=== PATIENT | female | born 1945 | race Caucasian/White ===

== ENCOUNTER 2016-08-18 09:08 | Outpatient (CLI) | payer MEDICARE | END 2016-08-18 09:09 | disposition home or self-care (01) | DX: S83.241A Other tear of medial meniscus, current injury, right knee, initial encounter (principal); S83.281A Other tear of lateral meniscus, current injury, right knee, initial encounter; M17.11 Unilateral primary osteoarthritis, right knee; M25.461 Effusion, right knee; M67.461 Ganglion, right knee; I86.8 Varicose veins of other specified sites ==

== ENCOUNTER 2016-12-24 13:30 | Outpatient (CLI) | payer MEDICARE | END 2016-12-24 13:45 | disposition home or self-care (01) | LOC: RT.N 13:30 | PROVIDERS: ATTEND Nurse Practitioner Gerontology | DX: Z01.810 Encounter for preprocedural cardiovascular examination (principal) | CPT/HCPCS: 93005 ==

== ENCOUNTER 2016-12-24 21:53 | Outpatient (CLI) | payer MEDICARE ==
[2016-12-24 19:12] LABS: BASOPHILS % (AUTO) 0.5 %; EOSINOPHILS # (AUTO) 0.2 10^3/uL (0.0-0.7); EOSINOPHILS % (AUTO) 2.4 %; HCT - HEMATOCRIT 42.3 % (37.0-47.0); LYMPHOCYTES # (AUTO) 1.9 10^3/uL (1.5-3.5); LYMPHOCYTES % (AUTO) 21.7 %; MEAN CORPUSCULAR HEMOGLOBIN 28.6 pg (27.0-31.0); MEAN CORPUSCULAR VOLUME 86.6 fL (81.0-99.0); MEAN PLATELET VOLUME 9.4 fL (7.9-10.8); MONOCYTES # (AUTO) 0.5 10^3/uL (0.0-1.0); MONOCYTES % (AUTO) 6.3 %; NEUTROPHILS % (AUTO) 69.1 %; RED BLOOD COUNT 4.88 10^6/uL (4.20-5.40); RED CELL DISTRIBUTION WIDTH 14.6 % (12.0-15.0); UNCORRECTED WHITE BLOOD COUNT 8.6 x10^3/uL; WHITE BLOOD COUNT 8.6 x10^3/uL (4.8-10.8)
[2016-12-24 19:33] LABS: ALBUMIN/GLOBULIN RATIO 1.1 (1.0-2.2); BILIRUBIN,TOTAL 0.5 mg/dL (0.2-1.0); BUN - BLOOD UREA NITROGEN 20 mg/dL (6-20); CARBON DIOXIDE - CO2 28 mmol/L (21-32); CHLORIDE 100 mmol/L (101-111); CHOL/HDL RATIO 2.8 (<4.4); CHOLESTEROL 190 mg/dL; CREATININE 0.8 mg/dL (0.4-1.0); GFR - MDRD 71 (>89); GLUCOSE 103 mg/dL (70-100); HDL CHOLESTEROL 69 mg/dL; LDL/HDL RATIO 1.4 (<4.4); POTASSIUM 3.1 mmol/L (3.5-5.0); SODIUM 137 mmol/L (135-145); TOTAL PROTEIN 7.3 g/dL (6.7-8.2); TRIGLYCERIDES 104 mg/dL; VLDL CHOLESTEROL 21 mg/dL
== END 2016-12-24 21:54 | disposition home or self-care (01) ==
LOC: LAB.N 21:53
PROVIDERS: ATTEND Nurse Practitioner Gerontology
DX: Z01.810 Encounter for preprocedural cardiovascular examination (principal); R73.03 Prediabetes; I63.9 Cerebral infarction, unspecified; E78.5 Hyperlipidemia, unspecified; E66.9 Obesity, unspecified; I67.89 Other cerebrovascular disease
CPT/HCPCS: 36415; 80053; 80061; 84443; 85025; 87640; 93005

== ENCOUNTER 2016-12-24 22:06 | Outpatient (CLI) | payer MEDICARE | END 2016-12-24 22:07 | disposition home or self-care (01) | LOC: LAB.R 22:06 | PROVIDERS: ATTEND Nurse Practitioner Gerontology | DX: Z01.818 Encounter for other preprocedural examination (principal); M67.461 Ganglion, right knee; M25.561 Pain in right knee | CPT/HCPCS: 87640 ==

== ENCOUNTER 2017-01-09 08:39 | Outpatient (CLI) | payer MEDICARE | END 2017-01-09 08:40 | disposition home or self-care (01) | LOC: LAB.N 08:39 | PROVIDERS: ATTEND Nurse Practitioner Gerontology | DX: E87.6 Hypokalemia (principal) | CPT/HCPCS: 36415; 84132 ==

== ENCOUNTER 2017-02-20 12:06 | Outpatient (CLI) | payer MEDICARE ==
--- NOTE | 2017-02-20 16:29 | CT Report ---
CT LUNG CANCER SCREENING WITHOUT CONTRAST: 02/20/2017 CLINICAL INDICATION: A 71-year-old with [id number] history of smoking, quit within the last 15 year s, for screening. COMPARISON: 01/31/2016. TECHNIQUE: Axial CT images of the chest were obtained without intravenous contrast, using low dose sc reening technique. FINDINGS: The heart and great vessels are unremarkable. No hilar or mediastinal lymphadenopathy is p resent. The previously noted subpleural nodules are stable, with the more superior nodule in the left lower lobe measuring 4 mm (axial image 70), and the more inferior left lower lobe nodule measuring 6 mm (axial image 79), and the right lower lobe nodule measuring 5 mm (axial image 98). No new or enla rging pulmonary nodule is identified. No effusion or pneumothorax is present. Limited evaluation of upper abdominal structures demonstrates normal adrenal glands. The osseous stru ctures demonstrate degenerative changes. IMPRESSION: STABLE SMALL SUBPLEURAL PULMONARY NODULES. NO SIGNIFICANT INTERVAL CHANGE. RECOMMENDATION: CONTINUE ANNUAL SCREENING WITH LOW DOSE CT IN TWELVE MONTHS. LUNG RADS CATEGORY 2-BENIGN FINDINGS. In accordance with CT protocol optimization, one or more of the following dose reduction techniques w ere utilized for this exam: automated exposure control, adjustment of mA and/or KV based on patient size, or use of iterative reconstructive technique. JOB #: [id number] EXT JOB #:[id number]
== END 2017-02-20 12:07 | disposition home or self-care (01) ==
LOC: DI 12:06
PROVIDERS: ATTEND Nurse Practitioner Gerontology
DX: Z12.2 Encounter for screening for malignant neoplasm of respiratory organs (principal); Z87.891 Personal history of nicotine dependence; R91.8 Other nonspecific abnormal finding of lung field

== ENCOUNTER 2017-03-06 08:00 | Outpatient (CLI) | payer MEDICARE | END 2017-03-06 08:01 | disposition home or self-care (01) | LOC: LAB.N 08:00 | PROVIDERS: ATTEND Nurse Practitioner Gerontology | DX: E87.6 Hypokalemia (principal) | CPT/HCPCS: 36415; 84132 ==

== ENCOUNTER 2017-03-25 06:05 | Inpatient (IN) | payer MEDICARE ==
[2017-03-25] MEDS ORDERED: ceFAZolin 2 GM/50 ML 2 GM/50 ML BAG IV ONE (06:36)
[2017-03-25] MEDS ORDERED: LACTATED RINGERS 1,000 ML IV ONE (07:20)
[2017-03-25] MEDS ORDERED: MORPHINE PF 10 MG/10 ML AMP SUBQ ONE ×2 (10:14→10:32)
[2017-03-25] MEDS ORDERED: EPINEPHrine 1 MG/ML AMP SUBQ ONE ×2 (10:15→10:32)
[2017-03-25] MEDS ORDERED: ROPIVACAINE 0.2% PF 20 ML AMPULE SUBQ ONE ×2 (10:16→10:32)
[2017-03-25] MEDS ORDERED: KETOROLAC 30 MG/ML VIAL IM ONE ×2 (10:18→10:32)
[2017-03-25] MEDS ORDERED: BUPIVACAINE 0.5%-EPI 1:200000 PF 30 ML VIAL SUBQ ONE ×2 (10:22→11:24)
[2017-03-25] MEDS ORDERED: TRANEXAMIC ACID 1,000 MG/10 ML VIAL IV ONE (10:30)
[2017-03-25] MEDS ORDERED: ceFAZolin 1 GM VIAL IV ONE (10:30)
[2017-03-25] MEDS ORDERED: ACETAMINOPHEN 1,000 MG/100 ML 100 ML IV ONE (10:30)
[2017-03-25] MEDS ORDERED: MIDAZOLAM 2 MG/2 ML VIAL IVP ONE (10:30)
[2017-03-25] MEDS ORDERED: fentaNYL 100 MCG/2 ML VIAL IVP ONE (10:30)
[2017-03-25] MEDS ORDERED: PHENYLEPHRINE 50 MG/5 ML VIAL IV ONE (10:30)
[2017-03-25] MEDS ORDERED: KETOROLAC 30 MG/ML VIAL IVP ONE (10:30)
[2017-03-25] MEDS ORDERED: METOCLOPRAMIDE 10 MG/2 ML VIAL IVP ONE (10:30)
[2017-03-25] MEDS ORDERED: ePHEDrine 50 MG/ML VIAL IVP ONE (10:30)
[2017-03-25] MEDS ORDERED: LIDOCAINE-MPF 2% 5 ML VIAL IM ONE (10:30)
[2017-03-25] MEDS ORDERED: DEXAMETHASONE 4 MG/ML VIAL IVP ONE (10:30)
[2017-03-25] MEDS ORDERED: PROPOFOL 200 MG/20 ML VIAL IVP ONE (10:30)
--- NOTE | 2017-03-25 11:44 | OPERATIVE REPORT ---
Operative Report - General Admit Date: 03/25/17 Procedure Date: 03/25/17 Pre-Op Diagnosis: Right Knee Osteoarthritis Procedure Performed: Right Total Knee Arthroplasty Post Op Diagnosis: Same - Procedure Note Primary Surgeon: Russell Gale MD Anesthesia Provider: Jenna Arnold CRNA Anesthesia Technique: General ET tube, Local, Regional block Pathology: Same IV Fluids (mL): 1,500 (LR) Estimated Blood Loss (mL): 300 Complications: None. - Other Other Information/Narrative: Implants: Perlita Persona Knee: Size 7 Standard Femoral Com[onent, PS Size E Tibial Tray Size E x 10 mm PS Polyethylene Tibial Insert Size 32 x 8 mm Polyethylene Patella Button Palacos Cement Condition: Stable. Disposition: PACU >> Med Surg
[2017-03-25] MEDS ORDERED: PROCHLORPERAZINE 10 MG/2 ML VIAL IVP PRN (11:47)
[2017-03-25] MEDS ORDERED: BISACODYL 5 MG TABLET PO PRN (11:47)
[2017-03-25] MEDS ORDERED: BISACODYL 10 MG SUPP PR PRN (11:47)
[2017-03-25] MEDS ORDERED: ACETAMINOPHEN 325 MG TABLET PO PRN (11:47)
[2017-03-25] MEDS ORDERED: DOCUSATE SODIUM 100 MG CAPSULE PO PRN (11:47)
[2017-03-25] MEDS ORDERED: ACETAMINOPHEN 1,000 MG/100 ML 100 ML IV PRN (11:47)
[2017-03-25] MEDS ORDERED: ONDANSETRON 4 MG/2 ML VIAL IVP PRN (11:47)
[2017-03-25] MEDS ORDERED: SODIUM CHLORIDE FLUSH 0.9% 10 ML SYRINGE IVP PRN (11:47)
[2017-03-25] MEDS ORDERED: HYDROmorphone 1 MG/ML CARPUJECT IVP PRN (11:47)
[2017-03-25] MEDS ORDERED: SENNA 8.6 MG TABLET PO PRN (11:47)
[2017-03-25] MEDS ORDERED: ALBUTEROL NEB 2.5 MG/3 ML INH PRN (11:54)
[2017-03-25] MEDS: SODIUM CHLORIDE FLUSH 0.9% 10 ML SYRINGE IVP SCH ×2 (13:46→22:28)
[2017-03-25] MEDS: ceFAZolin 2 GM/50 ML 2 GM/50 ML BAG IV SCH ×2 (13:46→21:05)
[2017-03-25] MEDS: SODIUM CHLORIDE 0.45% 1,000 ML IV SCH (13:46)
--- NOTE | 2017-03-25 20:14 | XRAY Preliminary Report ---
Exam: XR Knee 2 View RT IMPRESSION: Unremarkable postoperative exam. [facility] SITE ID: [id number]
--- NOTE | 2017-03-25 20:34 | XRAY Report ---
EXAM: RIGHT KNEE RADIOGRAPHY EXAM DATE: 03/25/2017 05:37 PM. CLINICAL HISTORY: Right total knee arthroplasty. COMPARISON: 08/28/2016. TECHNIQUE: 2 views. FINDINGS: Bones: No unexpected bony abnormality. Joints: Immediately status post right total knee replacement. Bones in anatomic alignment. Soft Tissues: Air and edema at the operative site. IMPRESSION: Unremarkable postoperative exam. [facility] Referring Provider Line: [phone] SITE ID: [id number]
[2017-03-25] MEDS: OMEGA-3 ACID ETHYL ESTERS 1 GM CAPSULE PO SCH (21:04)
[2017-03-25] MEDS: POTASSIUM CHLORIDE 20 MEQ TABLET PO SCH (21:04)
[2017-03-25] MEDS: TOCOPHERYL 400 UNIT CAPSULE PO SCH (21:04)
[2017-03-25] MEDS: traZODone 50 MG TABLET PO SCH (21:04)
[2017-03-25] MEDS: CALCIUM CARBONATE CHEW 500 MG TABLET PO SCH (21:04)
[2017-03-25] MEDS: MONTELUKAST 10 MG TABLET PO SCH (21:15)
[2017-03-25] MEDS: oxyCOD/ACETAMIN 5 MG/325 MG TABLET PO PRN (21:15)
[2017-03-26] MEDS: SODIUM CHLORIDE 0.45% 1,000 ML IV SCH ×2 (00:43→10:52)
[2017-03-26] MEDS: PANTOPRAZOLE 40 MG TABLET PO SCH (06:30)
[2017-03-26] MEDS: oxyCOD/ACETAMIN 5 MG/325 MG TABLET PO PRN ×3 (06:30→20:41)
[2017-03-26] MEDS: SODIUM CHLORIDE FLUSH 0.9% 10 ML SYRINGE IVP SCH ×3 (06:31→19:03)
[2017-03-26 06:44] LABS: BASOPHILS % (AUTO) 0.2 %; EOSINOPHILS % (AUTO) 0.1 %; HCT - HEMATOCRIT 34.5 % (37.0-47.0); HGB - HEMOGLOBIN 11.4 g/dL (12.0-16.0); LYMPHOCYTES # (AUTO) 1.3 10^3/uL (1.5-3.5); MEAN CORPUSCULAR HEMOGLOBIN 29.3 pg (27.0-31.0); MEAN CORPUSCULAR HGB CONC 33.2 g/dL (32.0-36.0); MEAN CORPUSCULAR VOLUME 88.5 fL (81.0-99.0); MONOCYTES # (AUTO) 0.8 10^3/uL (0.0-1.0); MONOCYTES % (AUTO) 5.7 %; NEUTROPHILS # (AUTO) 12.2 10^3/uL (1.5-6.6); RED CELL DISTRIBUTION WIDTH 14.5 % (12.0-15.0); UNCORRECTED WHITE BLOOD COUNT 14.3 x10^3/uL; WHITE BLOOD COUNT 14.3 x10^3/uL (4.8-10.8)
[2017-03-26 06:47] LABS: CALCIUM 7.6 mg/dL (8.5-10.3); CREATININE 1.1 mg/dL (0.4-1.0); POTASSIUM 3.2 mmol/L (3.5-5.0)
[2017-03-26] MEDS: VITAMIN B COMPLEX PO SCH (08:35)
[2017-03-26] MEDS: CHOLECALCIFEROL 1,000 UNIT TABLET PO SCH (08:36)
[2017-03-26] MEDS: OMEGA-3 ACID ETHYL ESTERS 1 GM CAPSULE PO SCH ×2 (08:36→20:41)
[2017-03-26] MEDS: POTASSIUM CHLORIDE 20 MEQ TABLET PO SCH ×2 (08:36→20:41)
[2017-03-26] MEDS: TOCOPHERYL 400 UNIT CAPSULE PO SCH ×2 (08:36→20:41)
[2017-03-26] MEDS: CALCIUM CARBONATE CHEW 500 MG TABLET PO SCH ×2 (08:37→20:40)
[2017-03-26] MEDS: CHLORTHALIDONE 25 MG TABLET PO SCH (08:37)
[2017-03-26] MEDS: ENOXAPARIN 40 MG/0.4 ML SYRINGE SUBQ SCH (08:38)
[2017-03-26] MEDS ORDERED: ATORVASTATIN 10 MG TABLET PO SCH (09:00)
--- NOTE | 2017-03-26 11:45 | OPERATIVE REPORT ---
DATE OF SURGERY: 03/25/2017 00:00:00 PREOPERATIVE DIAGNOSIS: Right knee osteoarthritis. POSTOPERATIVE DIAGNOSIS: Right knee osteoarthritis. PROCEDURE PERFORMED: Right total knee arthroplasty. SURGEON: Russell Gale MD. ANESTHESIA: Raheem Johnson MD. ANESTHESIA TECHNIQUE: General endotracheal tube, local, and regional block. PATHOLOGY: Same. INTRAVENOUS FLUIDS: 1500 mL of lactated Ringer's. BLOOD LOSS: 300 mL. URINE OUTPUT: Adequate. COMPLICATIONS: None. IMPLANTS 1. Perlita Persona knee, size 7 standard femoral component, posterior stabilized. 2. A size E tibial tray. 3. A size E x 10 mm PS polyethylene tibial insert. 4. A size 32 x 8 mm polyethylene patellar button. 5. Palacos cement. CONDITION AT END OF PROCEDURE: Stable. DISPOSITION: PACU, then Med/Surg. TOURNIQUET: Right thigh at 275 mmHg x120 minutes. INDICATIONS: This is a 71-year-old female with multiple medical problems who has undergone extensive preoperative workup for her COPD and cardiac issues and deemed stable for surgery. She has had a long standing history of progressive right knee pain refractory to nonoperative measures such as activity modification, physical therapy and exercise, injection, a cane to the left hand, and oral analgesics. Despite these measures, she has continued to have significant pain with activity and pain that keeps her awake at night. She has opted for right total knee arthroplasty. PROCEDURE IN DETAIL: After consent and identification, the patient was brought to the operating room and placed in the supine position on the operating table. After induction of a general endotracheal a nesthesia and appropriate monitoring, the right lower extremity was prepped and draped free with a to urniquet to the proximal thigh. After prepping and draping, the right lower extremity was placed in t Olivares leg sanon. The Esmarch bandage was used to exsanguinate the extremity and the tourniquet was inflated to 275 mmHg. After an appropriate timeout had been conducted, we extended the right knee and made a standard media n parapatellar approach to the right knee everting the patella. Extensive osteophyte resection was ca rried out with a rongeur. A drill was used to make a police pilot hole in the distal femur at the junction b etween Blumensaat line and the trochlear groove. The intramedullary distal femoral cutting guide was introduced and pinned and a distal femoral cut at 10 mm was performed. We then positioned and secured the distal femoral cutting block and performed anterior, posterior and chamfer cuts on the distal fe mur. The distal femur was sized to a size 7 femoral component. We then placed the tuning fork retract or in place after resecting the anterior and posterior cruciate ligaments with electrocautery. This d elivered the tibia anteriorly. The extramedullary tibial cutting guide was then positioned and secure d with pins. We used the stylus to detect the low point, which was posterolaterally. We then performe d our proximal tibial cut at the 0 level with reference to the low point on the lateral posterior cor ner. Cut was deemed to be adequate. We resected the menisci both medially and laterally with the elec trocautery. We then performed our tibial preparation with our punch and drill and placed a tibial tra y, which was pinned in position. The femoral trial was positioned and we placed a 10 mm posterior sta bilized insert. Range of motion verified good flexion, extension gaps. We then used the clamp and the calipers to make a 9 mm cut on the patella. We prepared the patellar surface with 3 drill holes and sized to a 32 mm polyethylene component. The patellar trial was placed and we again ranged the knee a nd noted good patellar tracking. We then removed all of our trial components and prepared the bony zavala rfaces with thorough irrigation with 3 liters of sterile saline. We placed dry lap sponges in the kne e while we mixed 2 batches of Palacos cement on the back table. We used the anterior chamfer cut to m tomás a bone plug, which was tamped into position in the hole made for the intramedullary guide and the distal femur to decrease blood loss. When the cement was in good consistency and the components had been opened, we applied cement to the back of the tibial tray and inserted the tibial tray, impacting it into position and aggressively debriding cement. Cement was placed on the back of the femoral com ponent. The femoral component was impacted into position. We placed our tibial trial and extended the knee. We then clamped and placed the polyethylene component on the patella with cement on the back a nd aggressively debrided this excess cement. With the components in a reduced position, we allowed th e cement to cure. We inspected the knee for any residual cement and debrided this carefully. We then irrigated the knee thoroughly. We removed the trial tibial component from the tray and inserted the p olyethylene component, snapping it into position with the inserting device. With all components in pl ronal, we again irrigated the knee. We then sequentially closed the knee after injecting the posterior capsule with our 60 mL solution of Naropin, Duramorph, Toradol and epinephrine. A running #5 Ethibond suture was used to close the medial capsule. Interrupted 2-0 Vicryl sutures were used in the subcuti cular layer. A running 3-0 Monocryl suture was used in the subdermal layer. We then injected the knee incision with an additional 30 mL of 0.5% Marcaine with epinephrine. A sterile Mepilex AG dressing w as then placed over the knee. The tourniquet was deflated and the leg was wrapped in a 6-inch and 4-i nmh Ronal bandage from the toes to the proximal thigh. On completion of the procedure, the patient was extubated and transferred to the recovery room in goo d condition having tolerated the procedure well. JOB #: [id number] EXT JOB #:[id number]
[2017-03-26] MEDS: HYDROmorphone 1 MG/ML SYRINGE IVP PRN ×2 (12:41→16:38)
[2017-03-26] MEDS: CITALOPRAM 10 MG TABLET PO SCH (13:41)
[2017-03-26] MEDS: ATORVASTATIN 10 MG TABLET PO SCH (20:40)
[2017-03-26] MEDS: MONTELUKAST 10 MG TABLET PO SCH (20:48)
[2017-03-27] MEDS: traZODone 50 MG TABLET PO SCH ×2 (00:02→20:38)
[2017-03-27] MEDS: oxyCOD/ACETAMIN 5 MG/325 MG TABLET PO PRN ×4 (05:07→20:38)
[2017-03-27] MEDS: SODIUM CHLORIDE FLUSH 0.9% 10 ML SYRINGE IVP SCH ×3 (06:22→20:40)
[2017-03-27] MEDS: PANTOPRAZOLE 40 MG TABLET PO SCH (06:22)
[2017-03-27] MEDS: CLOPIDOGREL 75 MG TABLET PO SCH (09:39)
[2017-03-27] MEDS: CHLORTHALIDONE 25 MG TABLET PO SCH (09:39)
[2017-03-27] MEDS: CALCIUM CARBONATE CHEW 500 MG TABLET PO SCH ×2 (09:39→20:37)
[2017-03-27] MEDS: CITALOPRAM 10 MG TABLET PO SCH (09:40)
[2017-03-27] MEDS: CHOLECALCIFEROL 1,000 UNIT TABLET PO SCH (09:40)
[2017-03-27] MEDS: VITAMIN B COMPLEX PO SCH (09:40)
[2017-03-27] MEDS: TOCOPHERYL 400 UNIT CAPSULE PO SCH ×2 (09:40→20:37)
[2017-03-27] MEDS: OMEGA-3 ACID ETHYL ESTERS 1 GM CAPSULE PO SCH ×2 (09:40→20:37)
[2017-03-27] MEDS: ENOXAPARIN 40 MG/0.4 ML SYRINGE SUBQ SCH (09:40)
[2017-03-27] MEDS: POTASSIUM CHLORIDE 20 MEQ TABLET PO SCH ×2 (09:40→20:37)
[2017-03-27] MEDS: ATORVASTATIN 10 MG TABLET PO SCH (20:37)
[2017-03-27] MEDS: MONTELUKAST 10 MG TABLET PO SCH (20:37)
[2017-03-28] MEDS: oxyCOD/ACETAMIN 5 MG/325 MG TABLET PO PRN ×3 (01:09→15:53)
[2017-03-28] MEDS: SODIUM CHLORIDE FLUSH 0.9% 10 ML SYRINGE IVP SCH ×3 (06:28→21:19)
[2017-03-28] MEDS: PANTOPRAZOLE 40 MG TABLET PO SCH (06:28)
[2017-03-28] MEDS: VITAMIN B COMPLEX PO SCH (07:39)
[2017-03-28] MEDS: CITALOPRAM 10 MG TABLET PO SCH (09:01)
[2017-03-28] MEDS: ENOXAPARIN 40 MG/0.4 ML SYRINGE SUBQ SCH (09:02)
[2017-03-28] MEDS: POTASSIUM CHLORIDE 20 MEQ TABLET PO SCH ×2 (09:02→20:57)
[2017-03-28] MEDS: TOCOPHERYL 400 UNIT CAPSULE PO SCH ×2 (09:02→20:57)
[2017-03-28] MEDS: CHLORTHALIDONE 25 MG TABLET PO SCH (09:02)
[2017-03-28] MEDS: CLOPIDOGREL 75 MG TABLET PO SCH (09:02)
[2017-03-28] MEDS: OMEGA-3 ACID ETHYL ESTERS 1 GM CAPSULE PO SCH ×2 (09:02→20:57)
[2017-03-28] MEDS: CALCIUM CARBONATE CHEW 500 MG TABLET PO SCH ×2 (09:02→20:57)
[2017-03-28] MEDS: CHOLECALCIFEROL 1,000 UNIT TABLET PO SCH (09:02)
[2017-03-28] MEDS: ATORVASTATIN 10 MG TABLET PO SCH (20:57)
[2017-03-28] MEDS: MONTELUKAST 10 MG TABLET PO SCH (20:57)
[2017-03-28] MEDS: traZODone 50 MG TABLET PO SCH (20:57)
[2017-03-29] MEDS: oxyCOD/ACETAMIN 5 MG/325 MG TABLET PO PRN ×3 (00:32→12:41)
[2017-03-29] MEDS: PANTOPRAZOLE 40 MG TABLET PO SCH (06:50)
[2017-03-29] MEDS: SODIUM CHLORIDE FLUSH 0.9% 10 ML SYRINGE IVP SCH (06:50)
--- NOTE | 2017-03-29 09:40 | PROVIDER PROGRESS NOTE ---
Subjective - Prog Note Date Prog Note Date: 03/26/17 Prog Note Time: 12:00 - Subjective Pt reports feeling: Improved Subjective: Patient feels well. Pain well controlled. Up to bedside chair with PT. Objective - Vital Signs/Intake & Output Reviewed Vital Signs: Yes Vital Signs: Vital Signs x48h Temp Pulse Resp BP Pulse Ox 03/29/17 07:58 37.2 C 69 20 127/71 92 03/29/17 06:22 36.8 C 73 16 103/53 L 97 03/29/17 02:09 37.3 C Intake & Output: Intake & Output 03/26/17 03/27/17 03/28/17 03/29/17 23:59 23:59 23:59 23:59 Intake Total 3240 540 1270 Output Total 2325 3450 1550 800 Balance 915 -2910 -280 -800 - Objective General Appearance: positive: No acute distress, Alert Eyes Bilateral: positive: Normal inspection ENT: positive: ENT inspection nml Neck: positive: Nml inspection Respiratory: positive: No respiratory distress, Breath sounds nml Cardiovascular: positive: Regular rate & rhythm Peripheral Pulses: 0 Dorsalis pedis (R), 0 Posterior tibialis (R) Abdomen: positive: Non-tender, Nml bowel sounds, No distention. negative: Guarding Back: positive: Nml inspection Skin: positive: Color nml, No rash, Warm, Dry Extremities: positive: Other (Mepi;ex dressing intact. Minimal erythema, swelling, tenderness.). negative: Pedal edema, Calf tenderness, June's sign/ cords Neurologic/Psychiatric: positive: Oriented x3, Motor nml, Sensation nml, Mood/ affect nml - Lab Results Fish Bones: 03/26/17 05:42 03/26/17 05:42 - Diagnostic Imaging Diagnostic Imaging Results: positive: Read independently (Right TKA componenets in good position without evidence of loosening. Moderate soft tissue air consistent with recent surgery.) Assessment/Plan - Problem List (1) Status post total right knee replacement using cement Impression: Stable Post-Op Day #1 Plan: 1. Mobilize with PT. 2. Anticipate D/C to SNF in next 2-3 days. (2) Aftercare following knee joint replacement surgery Qualifiers: Laterality: left Qualified Code(s): Z47.1 - Aftercare following joint replacement surgery; Z96.652 - Presence of left artificial knee joint; Z96.652 - Presence of left artificial knee joint
--- NOTE | 2017-03-29 09:46 | PROVIDER PROGRESS NOTE ---
Subjective - Prog Note Date Prog Note Date: 03/27/17 Prog Note Time: 12:00 - Subjective Pt reports feeling: Improved Objective - Vital Signs/Intake & Output Reviewed Vital Signs: Yes Vital Signs: Vital Signs x48h Temp Pulse Resp BP Pulse Ox 03/29/17 07:58 37.2 C 69 20 127/71 92 03/29/17 06:22 36.8 C 73 16 103/53 L 97 03/29/17 02:09 37.3 C Intake & Output: Intake & Output 03/26/17 03/27/17 03/28/17 03/29/17 23:59 23:59 23:59 23:59 Intake Total 3240 540 1270 Output Total 2325 3450 1550 800 Balance 915 -2910 -280 -800 - Objective General Appearance: positive: No acute distress, Alert Eyes Bilateral: positive: Normal inspection ENT: positive: ENT inspection nml Neck: positive: Nml inspection Respiratory: positive: No respiratory distress, Breath sounds nml Cardiovascular: positive: Regular rate & rhythm Peripheral Pulses: 2+ Dorsalis pedis (R), 2+ Posterior tibialis (R) Abdomen: positive: Non-tender, Nml bowel sounds, No distention. negative: Guarding Back: positive: Nml inspection Skin: positive: Color nml, No rash, Warm, Dry Extremities: positive: Other (Mildy tender around Right Knee Incision. Dressing C/D/I.). negative: Pedal edema, Calf tenderness, June's sign/cords - Lab Results Fish Bones: 03/26/17 05:42 03/26/17 05:42 Assessment/Plan - Problem List (1) Status post total right knee replacement using cement Impression: Stable Post-Op Day #2 Plan: 1. Continue PT. 2. Depending on progress, [place] [facility] [place]. (2) Aftercare following knee joint replacement surgery Qualifiers: Laterality: left Qualified Code(s): Z47.1 - Aftercare following joint replacement surgery; Z96.652 - Presence of left artificial knee joint; Z96.652 - Presence of left artificial knee joint
--- NOTE | 2017-03-29 09:48 | PROVIDER PROGRESS NOTE ---
Subjective - Prog Note Date Prog Note Date: 03/28/17 Prog Note Time: 12:00 - Subjective Pt reports feeling: Improved Subjective: Continues to work with PT. Steps today. Pain well controlled. Objective - Vital Signs/Intake & Output Reviewed Vital Signs: Yes Vital Signs: Vital Signs x48h Temp Pulse Resp BP Pulse Ox 03/29/17 07:58 37.2 C 69 20 127/71 92 03/29/17 06:22 36.8 C 73 16 103/53 L 97 03/29/17 02:09 37.3 C Intake & Output: Intake & Output 03/26/17 03/27/17 03/28/17 03/29/17 23:59 23:59 23:59 23:59 Intake Total 3240 540 1270 Output Total 2325 3450 1550 800 Balance 915 -2910 -280 -800 - Objective General Appearance: positive: No acute distress, Alert Eyes Bilateral: positive: Normal inspection ENT: positive: ENT inspection nml Neck: positive: Nml inspection Abdomen: positive: Non-tender, Nml bowel sounds, No distention. negative: Guarding Back: positive: Nml inspection Skin: positive: Color nml, No rash, Warm, Dry Extremities: positive: Other (Dressinjg intact. Minimal surrounding erythema.). negative: Pedal edema, Calf tenderness, June's sign/cords Neurologic/Psychiatric: positive: Oriented x3, Motor nml, Sensation nml, Mood/ affect nml - Lab Results Fish Bones: 03/26/17 05:42 03/26/17 05:42 Assessment/Plan - Problem List (1) Status post total right knee replacement using cement Impression: Stable Post-Op Day #3 Plan: 1. Continue PT. Making good progress with walker. 2. Discharge tomorrow to [facility]. (2) Aftercare following knee joint replacement surgery Qualifiers: Laterality: left Qualified Code(s): Z47.1 - Aftercare following joint replacement surgery; Z96.652 - Presence of left artificial knee joint; Z96.652 - Presence of left artificial knee joint
[2017-03-29] MEDS: CHOLECALCIFEROL 1,000 UNIT TABLET PO SCH (09:51)
[2017-03-29] MEDS: TOCOPHERYL 400 UNIT CAPSULE PO SCH (09:51)
[2017-03-29] MEDS: OMEGA-3 ACID ETHYL ESTERS 1 GM CAPSULE PO SCH (09:51)
[2017-03-29] MEDS: CLOPIDOGREL 75 MG TABLET PO SCH (09:51)
[2017-03-29] MEDS: CALCIUM CARBONATE CHEW 500 MG TABLET PO SCH (09:51)
[2017-03-29] MEDS: POTASSIUM CHLORIDE 20 MEQ TABLET PO SCH (09:51)
[2017-03-29] MEDS: CITALOPRAM 10 MG TABLET PO SCH (09:51)
[2017-03-29] MEDS: ENOXAPARIN 40 MG/0.4 ML SYRINGE SUBQ SCH (09:52)
[2017-03-29] MEDS: CHLORTHALIDONE 25 MG TABLET PO SCH (09:52)
--- NOTE | 2017-03-29 09:54 | Discharge Plan ---
Discharge Plan Disposition: 03 DC/Xfer Condition: Good Prescriptions: Bisacodyl [Dulcolax] 10 mg PO Q12H PRN #14 tablet PRN Reason: Constipation Bisacodyl Supp [Dulcolax Supp] 10 mg ND Q12H PRN #3 supp PRN Reason: Constipation Enoxaparin [Lovenox] 40 mg SUBQ DAILY #24 syringe oxyCODONE/ACET 5/325 [Percocet 5 mg/325 mg] 1 tab PO Q4HR PRN #15 tablet PRN Reason: Breakthrough Pain Diet: Regular Activity Restrictions: Wt Bearing as Tolerated Shower Restrictions: No Driving Restrictions: Yes Assistance Devices: Walker Weight Bearing: Full Weight No Smoking: If you smoke, Please STOP! Call for help. Follow-up with: Veronica Monroy ARNP [Primary Care Provider] - Russell Gale MD [Provider Admit Priv/Credential] -
[2017-03-29] MEDS: VITAMIN B COMPLEX PO SCH (09:57)
[2017-03-29 12:37] VITALS: BP 127/69
== END 2017-03-29 13:25 | DRG 470 ==
LOC: MS3 06:05
PROVIDERS: ADMIT Orthopaedic Surgery; ATTEND Orthopaedic Surgery
PROC: 0SRC0J9 Replacement of Right Knee Joint with Synthetic Substitute, Cemented, Open Approach (ICD-10-PCS; principal; 2017-03-25 07:30)
DX: M17.11 Unilateral primary osteoarthritis, right knee (principal); J43.9 Emphysema, unspecified; E78.5 Hyperlipidemia, unspecified; I10 Essential (primary) hypertension; F32.9 Major depressive disorder, single episode, unspecified; E87.6 Hypokalemia; E55.9 Vitamin D deficiency, unspecified; K21.9 Gastro-esophageal reflux disease without esophagitis; K59.00 Constipation, unspecified; G89.29 Other chronic pain; M54.9 Dorsalgia, unspecified; G47.00 Insomnia, unspecified; R73.03 Prediabetes; R26.2 Difficulty in walking, not elsewhere classified; R20.0 Anesthesia of skin; Z98.1 Arthrodesis status; Z86.73 Personal history of transient ischemic attack (TIA), and cerebral infarction without residual deficits; Z87.891 Personal history of nicotine dependence; Z79.02 Long term (current) use of antithrombotics/antiplatelets
CPT/HCPCS: 36415; 80048; 85025; 86850; 86900; 86901

== ENCOUNTER 2017-11-12 12:28 | Outpatient (CLI) | payer MEDICARE ==
--- NOTE | 2017-11-13 13:32 | Mammography Report ---
DIGITAL SCREENING MAMMOGRAM: 11/12/2017 CLINICAL INDICATION: A 72-year-old for screening. COMPARISON: 01/2015, 12/2013. TECHNIQUE: Routine CC and MLO projections were obtained of the breasts. FINDINGS: The breasts again demonstrate fatty replacement bilaterally. Coarse, typically benign calcifications are present. No suspicious masses, clustered microcalcifications, or regions of architectural distortion are identified. IMPRESSION: BENIGN FINDINGS. RECOMMENDATION: Routine annual screening unless otherwise clinically indicated. BI-RADS CATEGORY 2 - BENIGN FINDINGS. STANDARD QUALIFYING STATEMENTS: 1. This examination was reviewed with the aid of Computer-Aided Detection (CAD). 2. A negative or benign imaging report should not delay biopsy if clinically suspicious findings are present. Consider surgical consultation if warranted. More than 5% of cancers are not identified by imaging. 3. Dense breasts may obscure an underlying neoplasm. TD: 11/13/2017 13:23
== END 2017-11-12 12:29 | disposition home or self-care (01) ==
LOC: DI 12:28
PROVIDERS: ATTEND Internal Medicine
DX: Z12.31 Encounter for screening mammogram for malignant neoplasm of breast (principal)
CPT/HCPCS: 77067

== ENCOUNTER 2017-11-12 12:29 | Outpatient (CLI) | payer MEDICARE ==
--- NOTE | 2017-11-14 11:49 | DEXA Report ---
DEXA SCAN: 11/12/2017 CLINICAL INDICATION: Postmenopausal. TECHNIQUE: Dual energy x-ray absorptiometry (DXA) was performed on a Aptela system. Regions measured are the AP spine, femoral neck, and, if needed, forearm. COMPARISON: None. In accordance with the International Society for Clinical Densitometry (ISCD) guidelines, data from previous exams may be reanalyzed using current recommendations and techniques. This is done to allow a more accurate basis for comparison with the current study. FINDINGS The data for the lumbar spine is as follows: REGION BMD (g/cm/cm) T-SCORE Z-SCORE L1 1.178 0.4 1.0 L2 1.009 -1.6 -1.0 L3 1.375 1.5 2.1 L4 1.217 0.1 0.8 L1-L2 1.087 -0.6 0.0 NOTE: All evaluable vertebrae are used for classification. The data for the hip is as follows: REGION BMD (g/cm/cm) T-SCORE Z-SCORE Neck 0.675 -2.6 -1.6 TOTAL 0.744 -2.1 -1.4 NOTE: The femoral neck or total proximal femur, whichever is lowest, is used for classification. IMPRESSION WHO CLASSIFICATION BASED ON THE INTERNATIONAL REFERENCE STANDARD IS OSTEOPOROSIS. FRACTURE RISK IS HIGH. RECOMMENDATION: Patients with diagnosis of osteoporosis or osteopenia should have regular bone mineral density assessment. For those eligible for Medicare, routine testing is allowed once every 2 years. Testing frequency can be increased for patients who have rapidly progressing disease or for those who are receiving medical therapy to restore bone mass. COMMENT World Health Organization (WHO) definitions for osteoporosis and osteopenia: NORMAL BMD: T-score at 1.0 or higher, fracture risk is low. OSTEOPENIA BMD: T-score between 1.0 and -2.5, fracture risk is increased. OSTEOPOROSIS BMD: T-score at 2.5 or lower, fracture risk high. National Osteoporosis Foundation recommends: 1. Obtain adequate dietary calcium (at least 1200 mg per day) and vitamin D (400 -800 international units per day). 2. Participate, as appropriate, in regular weightbearing and muscle- strengthening exercise. 3. Avoid tobacco use and reduce alcohol and caffeine intake. 4. For more detailed information see the website at www.NOF.org. TD: 11/13/2017 08:34 DENITA
== END 2017-11-12 12:30 | disposition home or self-care (01) ==
LOC: DI 12:29
PROVIDERS: ATTEND Internal Medicine
DX: Z13.820 Encounter for screening for osteoporosis (principal); N95.8 Other specified menopausal and perimenopausal disorders; M81.0 Age-related osteoporosis without current pathological fracture
CPT/HCPCS: 77080

== ENCOUNTER 2018-03-19 17:51 | Outpatient (CLI) | payer MEDICARE ==
--- NOTE | 2018-03-20 08:08 | Ultrasound Report ---
Reason: R LE EXERTIONAL FATIGUE Procedure Date: 03/19/2018 Accession Number: [id number] / [id number] Procedure: US - Ankle Brachial Index CPT Code: FULL RESULT: EXAM: ANKLE BRACHIAL INDEX ULTRASOUND EXAM DATE: 03/19/2018 07:05 PM. CLINICAL HISTORY: R LE EXERTIONAL FATIGUE. COMPARISON: None. TECHNIQUE: Sonographic evaluation FINDINGS: Peak systolic velocities in centimeters per second Right Posterior tibial artery 91 Dorsalis pedis artery 68 Left Posterior tibial artery 98 Dorsalis pedis artery 65 Blood pressure Right Brachial artery 122/65 Posterior tibial artery 141/61 Left Brachial artery 129/64 Posterior tibial artery 147/73 [place] Right 1.15 Left 1.14 IMPRESSION: Normal ankle brachial indices [facility]
== END 2018-03-19 17:52 | disposition home or self-care (01) ==
LOC: DI 17:51
PROVIDERS: ATTEND Internal Medicine
DX: R53.83 Other fatigue (principal)
CPT/HCPCS: 93922

== ENCOUNTER 2020-09-20 10:07 | Outpatient (CLI) | payer MEDICARE ==
--- NOTE | 2020-09-20 17:01 | CT Report ---
PROCEDURE: Low Dose Lung Cancer Screen INDICATIONS: HX OF SMOKING TECHNIQUE: Noncontrast low-dose 5 mm thick sections acquired from the pulmonary apices to the posterior costophr enic angles. 7 mm thick coronal and sagittal MIP reformats were then acquired. For radiation dose r eduction, the following was used: automated exposure control, adjustment of mA and/or kV according t o patient size. COMPARISON: 02/20/2017. FINDINGS: Image quality: Excellent. Lungs and pleura: Again noted are multiple small bilateral subpleural pulmonary nodules, all of whic h are stable. No new or increasing pulmonary nodules are identified. Mediastinum: Heart size is normal. No pericardial effusion. Moderate coronary artery calcifications . No mediastinal adenopathy by size criteria. Thoracic aorta and central pulmonary arteries are nor mal in size. Esophagus is normal in caliber. No hiatal hernia. Bones and chest wall: No suspicious bony lesions. No vertebral body compression fractures. No axil arnel or supraclavicular adenopathy by size criteria. Thyroid is not well visualized on this low-dose study. Abdomen: Visualized upper abdomen solid organs and bowel loops appear normal in the absence of contr ast. IMPRESSION: 1. LungRads category 1: Negative. No nodules and/or definitely benign nodules. Multiple bilateral sma ll pulmonary nodules have been stable times greater than 3 years. These are benign pulmonary nodules. 2. Annual low-dose noncontrast CT of the chest is recommended for lung cancer screening. 3. Clinically significant or potentially clinically significant findings (nonlung cancer): Moderate c oronary artery atherosclerotic calcifications. Reviewed by: Russell Clayton MD on 09/20/2020 5:00 PM PDT Approved by: Russell Clayton MD on 09/20/2020 5:00 PM PDT Station ID: [id number]
== END 2020-09-20 10:08 | disposition home or self-care (01) ==
LOC: DI 10:07
PROVIDERS: ATTEND Student in an Organized Health Care Education/Training Program
DX: Z12.2 Encounter for screening for malignant neoplasm of respiratory organs (principal); R91.8 Other nonspecific abnormal finding of lung field; I25.10 Atherosclerotic heart disease of native coronary artery without angina pectoris; Z87.891 Personal history of nicotine dependence